=== PATIENT | male | born 1960 | race African-American/Black ===

== ENCOUNTER → 2020-10-19 10:52 | Outpatient (BNVA) | payer OTHER, SELFPAY | PROVIDERS: PCP Internal Medicine; Visit Provider Urology | DX: N52.01 Erectile dysfunction due to arterial insufficiency (principal); N40.1 Benign prostatic hyperplasia with lower urinary tract symptoms; R35.1 Nocturia; N13.8 Other obstructive and reflux uropathy | CPT/HCPCS: 51798; 81002; 84153; Q3014 ==

== ENCOUNTER 2020-10-19 12:00 | Outpatient (REF) | payer MEDICARE, MEDICAID, SELFPAY ==
[2020-10-19 14:49] LABS: Prostate Specific Antigen 3.18 ng/mL (<0.05-4.0)
== END 2020-10-19 12:01 | disposition home or self-care (01) ==
LOC: HO.10HDL 12:00
PROVIDERS: Visit Provider Urology
DX: Z13.89 Encounter for screening for other disorder (principal)
CPT/HCPCS: 84153

== ENCOUNTER 2021-04-12 11:43 | Outpatient (REF) | payer OTHER, SELFPAY ==
[2021-04-12 13:54] LABS: PSA,Total (Free>4and<10) 2.96 ng/mL (0.00-4.00)
== END 2021-04-12 11:44 | disposition home or self-care (01) ==
LOC: HO.LAB 11:43
PROVIDERS: Visit Provider Urology
DX: N40.1 Benign prostatic hyperplasia with lower urinary tract symptoms (principal); N13.8 Other obstructive and reflux uropathy; Z12.5 Encounter for screening for malignant neoplasm of prostate
CPT/HCPCS: 36415; 84153

== ENCOUNTER → 2021-08-07 09:21 | Outpatient (BNVA) | payer OTHER, SELFPAY | PROVIDERS: Visit Provider Urology | DX: N40.1 Benign prostatic hyperplasia with lower urinary tract symptoms (principal); N13.8 Other obstructive and reflux uropathy; N52.01 Erectile dysfunction due to arterial insufficiency; R97.20 Elevated prostate specific antigen [PSA] | CPT/HCPCS: Q3014 ==

== ENCOUNTER 2022-02-03 09:38 | Outpatient (REF) | payer OTHER, SELFPAY ==
[2022-02-03 11:52] LABS: PSA,Total (Free>4and<10) 3.01 ng/mL (0.00-4.00)
== END 2022-02-03 09:39 | disposition home or self-care (01) ==
LOC: HO.LAB 09:38
PROVIDERS: Visit Provider Urology
DX: R97.20 Elevated prostate specific antigen [PSA] (principal); N40.1 Benign prostatic hyperplasia with lower urinary tract symptoms; N13.8 Other obstructive and reflux uropathy; Z12.5 Encounter for screening for malignant neoplasm of prostate
CPT/HCPCS: 36415; 84153

== ENCOUNTER → 2022-02-04 11:40 | Outpatient (BNVA) | payer OTHER, SELFPAY | PROVIDERS: Visit Provider Urology | DX: R97.20 Elevated prostate specific antigen [PSA] (principal); N52.01 Erectile dysfunction due to arterial insufficiency; N40.1 Benign prostatic hyperplasia with lower urinary tract symptoms; N13.8 Other obstructive and reflux uropathy; R39.11 Hesitancy of micturition; Z79.899 Other long term (current) drug therapy | CPT/HCPCS: 51798; 99212 ==

== ENCOUNTER → 2022-04-01 08:42 | Outpatient (BNVA) | payer OTHER, SELFPAY | PROVIDERS: PCP Nurse Practitioner Family; Visit Provider Urology | DX: Z13.89 Encounter for screening for other disorder (principal) | CPT/HCPCS: Q3014 ==

== ENCOUNTER → 2022-06-10 08:05 | Outpatient (BNVA) | payer OTHER, SELFPAY | PROVIDERS: PCP Nurse Practitioner Family; Visit Provider Urology | DX: N40.1 Benign prostatic hyperplasia with lower urinary tract symptoms (principal); N13.8 Other obstructive and reflux uropathy; R97.20 Elevated prostate specific antigen [PSA]; N52.01 Erectile dysfunction due to arterial insufficiency | CPT/HCPCS: Q3014 ==

== ENCOUNTER → 2022-07-09 12:45 | Outpatient (BNVA) | payer OTHER, SELFPAY | PROVIDERS: PCP Nurse Practitioner Family; Visit Provider Urology | DX: R97.20 Elevated prostate specific antigen [PSA] (principal); E11.69 Type 2 diabetes mellitus with other specified complication; N52.1 Erectile dysfunction due to diseases classified elsewhere; N40.1 Benign prostatic hyperplasia with lower urinary tract symptoms; N13.8 Other obstructive and reflux uropathy; R39.12 Poor urinary stream; R35.1 Nocturia | CPT/HCPCS: 51798; 99212 ==

== ENCOUNTER 2022-09-08 11:10 | Outpatient (REF) | payer OTHER, SELFPAY ==
--- NOTE | ~2022-09-08 | US_ITS ---
EXAMINATION: US PELVIS LIMITED (BLADDER) CLINICAL INFORMATION: Poor urinary stream. COMPARISON: None TECHNIQUE: Real-time imaging of the bladder. FINDINGS: BLADDER: There is mild diffuse bladder wall thickening.. No stone or mass. Bilateral ureteral jets are demonstrated. Prevoid bladder volume is 215.7 mL. Postvoid bladder volume is 13.6 mL. The prostate volume is 22.7 mL. US/US bladder IMPRESSION: Mild diffuse bladder wall thickening. Normal size prostate gland.
== END 2022-09-08 11:11 | disposition home or self-care (01) ==
LOC: HO.US 11:10
PROVIDERS: Visit Provider Urology
DX: R39.12 Poor urinary stream (principal); N40.1 Benign prostatic hyperplasia with lower urinary tract symptoms; N13.8 Other obstructive and reflux uropathy
CPT/HCPCS: 76857

== ENCOUNTER → 2022-09-16 12:39 | Outpatient (BNVA) | payer OTHER, SELFPAY | PROVIDERS: PCP Nurse Practitioner Family; Visit Provider Urology | DX: E11.69 Type 2 diabetes mellitus with other specified complication (principal); N52.01 Erectile dysfunction due to arterial insufficiency; N40.1 Benign prostatic hyperplasia with lower urinary tract symptoms; R39.11 Hesitancy of micturition; R39.12 Poor urinary stream; R35.1 Nocturia | CPT/HCPCS: Q3014 ==

== ENCOUNTER 2023-03-17 06:35 | Outpatient (REF) | payer OTHER, SELFPAY ==
[2023-03-17 08:13] LABS: Prostate Specific Antigen 4.72 ng/mL (<0.05-4.0)
== END 2023-03-17 06:36 | disposition home or self-care (01) ==
LOC: HO.LAB 06:35
PROVIDERS: Visit Provider Urology
DX: Z12.5 Encounter for screening for malignant neoplasm of prostate (principal); N13.8 Other obstructive and reflux uropathy; N40.1 Benign prostatic hyperplasia with lower urinary tract symptoms
CPT/HCPCS: 36415; 84153

== ENCOUNTER → 2023-03-25 11:26 | Outpatient (BNVA) | payer OTHER, SELFPAY | PROVIDERS: PCP Nurse Practitioner Family; Visit Provider Urology | DX: N40.1 Benign prostatic hyperplasia with lower urinary tract symptoms (principal); N13.8 Other obstructive and reflux uropathy; N52.01 Erectile dysfunction due to arterial insufficiency; R97.20 Elevated prostate specific antigen [PSA] | CPT/HCPCS: 99212 ==

== ENCOUNTER → 2023-04-24 10:06 | Outpatient (BNVA) | payer OTHER, SELFPAY | PROVIDERS: PCP Nurse Practitioner Family; Visit Provider Urology | DX: N40.1 Benign prostatic hyperplasia with lower urinary tract symptoms (principal); N13.8 Other obstructive and reflux uropathy; R97.20 Elevated prostate specific antigen [PSA] | CPT/HCPCS: 52000; 99212 ==

== ENCOUNTER 2023-08-18 07:59 | Outpatient (REF) | payer OTHER, SELFPAY | END 2023-08-18 08:00 | disposition home or self-care (01) | LOC: HO.LAB 07:59 | PROVIDERS: Visit Provider Urology | DX: R97.20 Elevated prostate specific antigen [PSA] (principal); Z12.5 Encounter for screening for malignant neoplasm of prostate | CPT/HCPCS: 36415; 84153 ==

== ENCOUNTER 2023-08-25 08:52 | Outpatient (AMB) | payer OTHER, SELFPAY ==
--- NOTE | 2023-08-25 08:57 | MHC.OFFVIS ---
Intake Intake Visit Reasons: 4M PSA(set) Intake Note: Patient is present for PSA Results: 08/18/23- PSA: 4.80 Urology Med: Finasteride, Tadalafil (Per Pt not taking) Antibiotic Allergy: None Blood Thinner: None Commercial Loan Closer Required: No Accompanied by: Self / Same As Patient Allergies No Known Allergies Allergy (Verified 08/25/23 08:59) Medication List - Last Reconciled 08/25/23 by Kali Yang MD atorvastatin 80 mg PO DAILY blood sugar diagnostic (FreeStyle Lite Strips) As directed capsaicin 0.025% appl topical diclofenac sodium 50 mg PO BID empagliflozin (Jardiance) 25 mg PO DAILY finasteride 5 mg PO DAILY 90 days gabapentin 300 mg PO TID lancets (FreeStyle Lancets) As directed lisinopril 2.5 mg PO DAILY lorazepam 2 mg PO methocarbamol 500 mg PO BID PRN omeprazole 20 mg PO DAILY sitagliptin phosphate (Januvia) 100 mg PO DAILY sitagliptin phosphate (Januvia) 50 mg PO DAILY tadalafil 10 mg PO DAILY 90 days tadalafil 20 mg PO ONCE PRN 30 days triamterene-hydrochlorothiazid 75-50 mg 1 tab PO DAILY HPI HPI Comments History of Present Illness Details Fernie is a pleasant male. He is a patient of Dr. Muse. He is seen for following urologic conditions - elevated PSA - erectile dysfunction secondary to diabetes Feels stream is a little improved PSA remains elevated Since last visit diagnosed with lung cancer. Undergone biopsy with partial lobectomy. Planning for chemotherapy versus XRT Prior Cystoscopy performed, small prostate, no median lobe Prior discussed transurethral incision of prostate Continue with combination daily tadalafil with on demand and finasteride Repeat PSA in 6 months Lower urinary tract symptoms Initial symptoms Urinary hesitancy, weakness of stream with nocturia and post terminal leakage Prior therapy - Not tolerating tamsulosin - made him sick Current therapy - finasteride with tadalafil Imaging - 09/06 Bladder 220 pre, 20 post, 20 cc prostate Elevated PSA/Abnormal DEL: Urination is reasonable He presents for further evaluation of elevated PSA. Current management is finasteride - had been followed 2015 with a different provider. Biopsy was performed which was negative. Laboratory investigations include 05/04 5.0, 12/05 4.7, 05/05 5.7, 11/04, 04/05 2.9, 02/04 3.0, 04/07 4.7, 09/07 4.8 Imaging investigations include a transrectal ultrasound - 06/03 Bladder US 40cc Individualized Prostate Cancer Risk Calculator 5-10% high risk, Discussed use of 5AR to help differentiate prostate cancer from benign disease. He would like to try this and understands the small risk associated with a delay in diagnosis Overall symptoms are mild. Erectile dysfunction in setting of diabetes Able to obtain but cannot maintain erection Current therapy 10 mg daily tadalafil with tadalafil 20 mg on demand [facility] Medical History Benign neoplasm of colon Combined arterial insufficiency and corporo-venous occlusive erectile dysfunction Depression Diabetes mellitus, type II Elevated PSA Erectile dysfunction Hyperlipidemia Kidney disease OA (osteoarthritis) Obesity Posttraumatic stress disorder Thrombocytosis Surgical History History of surgery History of surgery H/O prostate biopsy H/O arthroscopy of left knee Hx of colonoscopy Family History Father No problems noted. Mother CHF (congestive heart failure) Social History Alcohol intake: never Patient Tobacco Use Status: Never used Tobacco Review of Systems Const Denies chills and Denies fever(s) Card Reports no additional complaints and Denies syncope Resp Denies cough GI Denies abdominal pain and Denies heartburn Reports as per HPI and Denies change in libido Neuro Denies syncope Psych Denies change in libido Endo Denies change in libido Physical Exam Const General: cooperative, healthy appearing, comfortable and no acute distress Orientation/consciousness: patient oriented x3 HEENT Face and sinus: Yes normal facial exam Mouth: moist mucous membranes Neck Neck: Yes normal visual inspection, Yes full ROM and Yes trachea midline Chest Chest palpation & inspection: normal inspection of the chest Resp Effort & Inspection: normal respiratory effort, able to speak in complete sentences and no respiratory distress GI Inspection: Yes normal to inspection Back/Spine/Pelvis Cervical Spine: normal cervical lordosis Thoracic/Lumbar Spine: thoracic and lumbar spine normal to inspection Skin General skin exam: no rashes or lesions noted Neuro General: patient oriented x3, gait normal, tone normal and moves all extremities Extrem General: Yes normal to inspection and Yes capillary refill normal Assessment & Plan Assessment & Plan (1) Erectile dysfunction due to arterial insufficiency: Code(s): N52.01 - Erectile dysfunction due to arterial insufficiency (2) Elevated PSA: Code(s): R97.20 - Elevated prostate specific antigen [PSA] (3) Nocturia more than twice per night: Code(s): R35.1 - Nocturia Plan 6 month follow-up PSA Orders: Orders PSA,Total (Free>4and<10) 6 Months R97.20 - Elevated prostate specific antigen [PSA] Medications: New tadalafil 10 mg PO DAILY 90 tabs 1RF sexual activity 90 days N52.01 - Erectile dysfunction due to arterial insufficiency tadalafil On demand medication take 60 minutes before intended activity 20 mg PO ONCE PRN 30 tabs 0RF sexual activity 30 days E11.69 - Type 2 diabetes mellitus with other specified complication, N52.1 - Erectile dysfunction due to diseases classified elsewhere Patient Instructions: Imaging studies, laboratory and physical exam results were discussed and reviewed in detail. No major barriers to patient understanding were identified. An opportunity to ask questions regarding the treatment plan was provided. All questions were answered. The patient expressed understanding and agreement with the above treatment plan. The patient is aware they should contact our office by phone for worsening of their current condition or the appearance of new urologic symptoms. Compliance is encouraged with any medications and followup testing that is ordered. It is a privilege to participate in the urologic care of your patient. If you have any questions or concerns regarding treatment for the above conditions, or other urologic issues, please do not hesitate to contact me. The office telephone contact is [phone]. This note is constructed using voice recognition software. While every effort has been made to ensure accuracy metal fabricator welder errors may have been included. Yours sincerely, Dr Kali Yang MD, BR[facility] - Urology Providers of Expert, Compassionate Care for the Genitourinary System Coding Level of Care Code Est Pt Level 4 (43027) Diagnoses Erectile dysfunction due to arterial insufficiency N52.01 Elevated PSA R97.20 Nocturia more than twice per night R35.1
== END 2023-08-25 09:51 | disposition home or self-care (01) ==
PROVIDERS: PCP Nurse Practitioner Family; Visit Provider Urology
DX: N52.01 Erectile dysfunction due to arterial insufficiency (principal); R97.20 Elevated prostate specific antigen [PSA]; R35.1 Nocturia
CPT/HCPCS: 99214

== ENCOUNTER → 2023-08-25 08:52 | Outpatient (BNVA) | payer OTHER, SELFPAY | PROVIDERS: PCP Nurse Practitioner Family; Visit Provider Urology | DX: E11.69 Type 2 diabetes mellitus with other specified complication (principal); N52.1 Erectile dysfunction due to diseases classified elsewhere; R35.1 Nocturia; R97.20 Elevated prostate specific antigen [PSA] | CPT/HCPCS: 99212 ==

== ENCOUNTER 2024-02-16 12:53 | Outpatient (REF) | payer OTHER, SELFPAY ==
[2024-02-16 14:26] LABS: PSA,Total (Free>4and<10) 4.04 ng/mL (0.00-4.00)
[2024-02-18 12:04] LABS: Free Prostate Spec Ag 0.9 ng/mL; Percent Free Prostate Spec Ag 13 % (calc) (>25); Prostate Specific Ag Total 6.7 ng/mL (< OR = 4.0)
== END 2024-02-16 12:54 | disposition home or self-care (01) ==
LOC: HO.LAB 12:53
PROVIDERS: PCP Internal Medicine; Visit Provider Urology
DX: R97.20 Elevated prostate specific antigen [PSA] (principal); Z12.5 Encounter for screening for malignant neoplasm of prostate
CPT/HCPCS: 36415; 84153; 84154

== ENCOUNTER 2024-02-24 08:43 | Outpatient (AMB) | payer OTHER, SELFPAY ==
--- NOTE | 2024-02-24 08:46 | MHC.OFFVIS ---
Intake Intake Visit Reasons: 6M PSA(set)confirmed Intake Note: Patient presents today for a follow up on: PSA Meds- Finasteride, Tadalafil Allergies to Antibiotic- No Known Allergies Blood Thinner- None Post Void Residual: 132ml Research Neuropsychologist Required: No Accompanied by: Self / Same As Patient Allergies No Known Allergies Allergy (Verified 02/24/24 08:54) Medication List - Last Reconciled 02/24/24 by Kali Yang MD atorvastatin 80 mg PO DAILY blood sugar diagnostic (FreeStyle Lite Strips) As directed capsaicin 0.025% appl topical diclofenac sodium 50 mg PO BID empagliflozin (Jardiance) 25 mg PO DAILY finasteride 5 mg PO DAILY 90 days gabapentin 300 mg PO TID lancets (FreeStyle Lancets) As directed lisinopril 2.5 mg PO DAILY lorazepam 2 mg PO methocarbamol 500 mg PO BID PRN omeprazole 20 mg PO DAILY sitagliptin phosphate (Januvia) 100 mg PO DAILY sitagliptin phosphate (Januvia) 50 mg PO DAILY tadalafil 10 mg PO DAILY 90 days tadalafil 20 mg PO ONCE PRN 30 days triamterene-hydrochlorothiazid 75-50 mg 1 tab PO DAILY HPI HPI Comments History of Present Illness Details Fernie is a pleasant male. He is a patient of Dr. Muse. He is seen for following urologic conditions - elevated PSA - erectile dysfunction secondary to diabetes - lower urinary tract symptoms PSA continuing to climb Prior negative biopsy Recommend MRI Weakness of stream with urgency and frequency following chemotherapy PSA to have stop finasteride 2022 diagnosed with lung cancer. Undergone biopsy with partial lobectomy and chemotherapy Prior Cystoscopy performed, small prostate, no median lobe Prior discussed transurethral incision of prostate Continue with combination daily tadalafil with on demand Lower urinary tract symptoms Initial symptoms Urinary hesitancy, weakness of stream with nocturia and post terminal leakage Prior therapy - Not tolerating tamsulosin - made him sick Current therapy - finasteride with tadalafil Imaging - 09/06 Bladder 220 pre, 20 post, 20 cc prostate Elevated PSA/Abnormal DEL: Urination is reasonable He presents for further evaluation of elevated PSA. Current management is finasteride - had been followed 2015 with a different provider. Biopsy was performed which was negative. Laboratory investigations include 05/04 5.0, 12/05 4.7, 05/05 5.7, 11/04, 04/05 2.9, 02/04 3.0, 04/07 4.7, 09/07 4.8, 03/09 6.7 13% Imaging investigations include a transrectal ultrasound - 06/03 Bladder US 40cc Individualized Prostate Cancer Risk Calculator 5-10% high risk, Discussed use of 5AR to help differentiate prostate cancer from benign disease. He would like to try this and understands the small risk associated with a delay in diagnosis Erectile dysfunction in setting of diabetes Able to obtain but cannot maintain erection Current therapy 10 mg daily tadalafil with tadalafil 20 mg on demand [facility] Medical History Obesity Posttraumatic stress disorder Hyperlipidemia Erectile dysfunction Benign neoplasm of colon OA (osteoarthritis) Depression Diabetes mellitus, type II Kidney disease Thrombocytosis Combined arterial insufficiency and corporo-venous occlusive erectile dysfunction Elevated PSA Surgical History History of surgery History of surgery H/O prostate biopsy H/O arthroscopy of left knee Hx of colonoscopy Family History Father No problems noted. Mother CHF (congestive heart failure) Social History Alcohol intake: never Patient Tobacco Use Status: Never used Tobacco Review of Systems Const Denies chills and Denies fever(s) Card Reports no additional complaints and Denies syncope Resp Denies cough GI Denies abdominal pain and Denies heartburn Reports as per HPI and Denies change in libido Neuro Denies syncope Psych Denies change in libido Endo Denies change in libido Physical Exam Const General: cooperative, healthy appearing, comfortable and no acute distress Orientation/consciousness: patient oriented x3 HEENT Face and sinus: Yes normal facial exam Mouth: moist mucous membranes Neck Neck: Yes normal visual inspection, Yes full ROM and Yes trachea midline Chest Chest palpation & inspection: normal inspection of the chest Resp Effort & Inspection: normal respiratory effort, able to speak in complete sentences and no respiratory distress GI Inspection: Yes normal to inspection Back/Spine/Pelvis Cervical Spine: normal cervical lordosis Thoracic/Lumbar Spine: thoracic and lumbar spine normal to inspection Skin General skin exam: no rashes or lesions noted Neuro General: patient oriented x3, gait normal, tone normal and moves all extremities Extrem General: Yes normal to inspection and Yes capillary refill normal Office Procedures Post Void Residual Post Residual Void Post Void Residual (PVR): 132 [id number]-[place] Void Residual by ultrasound Assessment & Plan Assessment & Plan (1) Elevated PSA: Code(s): R97.20 - Elevated prostate specific antigen [PSA] (2) Nocturia more than twice per night: Code(s): R35.1 - Nocturia (3) Erectile dysfunction due to arterial insufficiency: Code(s): N52.01 - Erectile dysfunction due to arterial insufficiency Plan Prostate MRI for elevated PSA Trial tamsulosin for lower urinary tract symptoms Continue tadalafil Orders: Orders AMB Post Void Residual by ultrasound Today R33.9 - Retention of urine, unspecified MR pelvis wo/w con Today C61 - Malignant neoplasm of prostate, R97.20 - Elevated prostate specific antigen [PSA] Medications: New tamsulosin 0.4 mg PO BEDTIME 30 days 30 caps 1RF N40.1 - Benign prostatic hyperplasia with lower urinary tract symptoms, R35.1 - Nocturia Patient Instructions: Imaging studies, laboratory and physical exam results were discussed and reviewed in detail. No major barriers to patient understanding were identified. An opportunity to ask questions regarding the treatment plan was provided. All questions were answered. The patient expressed understanding and agreement with the above treatment plan. The patient is aware they should contact our office by phone for worsening of their current condition or the appearance of new urologic symptoms. Compliance is encouraged with any medications and followup testing that is ordered. It is a privilege to participate in the urologic care of your patient. If you have any questions or concerns regarding treatment for the above conditions, or other urologic issues, please do not hesitate to contact me. The office telephone contact is [phone]. This note is constructed using voice recognition software. While every effort has been made to ensure accuracy superintendent container terminal errors may have been included. Yours sincerely, Dr Kali Yang MD, BRU[facility] - Urology Providers of Expert, Compassionate Care for the Genitourinary System Coding Level of Care Code Est Pt Level 4 (09878) Diagnoses Elevated PSA R97.20 Nocturia more than twice per night R35.1 Erectile dysfunction due to arterial insufficiency N52.01 CPT Codes Post Residual Void - PVR CPT Code: 49674-Kbqo Void Residual by ultrasound ([id number])
== END 2024-02-24 09:24 | disposition home or self-care (01) ==
PROVIDERS: PCP Nurse Practitioner Family; Visit Provider Urology
DX: R97.20 Elevated prostate specific antigen [PSA] (principal); R35.1 Nocturia; N52.01 Erectile dysfunction due to arterial insufficiency
CPT/HCPCS: 99214

== ENCOUNTER → 2024-02-24 08:43 | Outpatient (BNVA) | payer OTHER, SELFPAY | PROVIDERS: PCP Nurse Practitioner Family; Visit Provider Urology | DX: R97.20 Elevated prostate specific antigen [PSA] (principal); R35.1 Nocturia; N52.01 Erectile dysfunction due to arterial insufficiency | CPT/HCPCS: 51798; 99212 ==

== ENCOUNTER 2024-04-27 08:46 | Outpatient (AMB) | payer OTHER, SELFPAY ==
--- NOTE | 2024-04-27 08:48 | MHC.OFFVIS ---
Intake Visit Reasons: 2m/MRI(set) Intake Note: Patient is Present for PVR/MRI Urology Med: Tadalafil, Finasteride Antibiotic Allergy:None Blood Thinner: None Last PVR: 132ml Todays PVR: 0ml Patient has not started tamsulosin that was last prescribed due to copay being very expensive Allergies No Known Allergies Allergy (Verified 02/24/24 08:54) HPI Comments Details: Fernie is a pleasant male. He is a patient of Dr. Muse. He is seen for following urologic conditions - elevated PSA - erectile dysfunction secondary to diabetes - lower urinary tract symptoms Follow-up from MRI 40 g prostate No evidence of uptake 95% negative predictive value Continue to follow PSA q.6 months Put back on tadalafil 5 mg daily And has on demand Did notice decline on erectile function following chemotherapy for lung cancer Weakness of stream with urgency and frequency following chemotherapy PSA to have stop finasteride 2022 diagnosed with lung cancer. Undergone biopsy with partial lobectomy and chemotherapy Prior Cystoscopy performed, small prostate, no median lobe Prior discussed transurethral incision of prostate Continue with combination daily tadalafil with on demand Lower urinary tract symptoms Initial symptoms Urinary hesitancy, weakness of stream with nocturia and post terminal leakage Prior therapy - Not tolerating tamsulosin - made him sick Current therapy - finasteride with tadalafil Imaging - 09/06 Bladder 220 pre, 20 post, 20 cc prostate Elevated PSA/Abnormal DEL: Urination is reasonable He presents for further evaluation of elevated PSA. Current management is finasteride - had been followed 2015 with a different provider. Biopsy was performed which was negative. Laboratory investigations include 05/04 5.0, 12/05 4.7, 05/05 5.7, 11/04, 04/05 2.9, 02/04 3.0, 04/07 4.7, 09/07 4.8, 03/09 6.7 13% Imaging investigations include a transrectal ultrasound - 06/03 Bladder US 40cc Individualized Prostate Cancer Risk Calculator 5-10% high risk, Discussed use of 5AR to help differentiate prostate cancer from benign disease. He would like to try this and understands the small risk associated with a delay in diagnosis Erectile dysfunction in setting of diabetes Able to obtain but cannot maintain erection Current therapy 10 mg daily tadalafil with tadalafil 20 mg on demand [facility] Medical History Obesity Posttraumatic stress disorder Hyperlipidemia Erectile dysfunction Benign neoplasm of colon OA (osteoarthritis) Depression Diabetes mellitus, type II Kidney disease Thrombocytosis Combined arterial insufficiency and corporo-venous occlusive erectile dysfunction Elevated PSA Surgical History History of surgery History of surgery H/O prostate biopsy H/O arthroscopy of left knee Hx of colonoscopy Family History Father No problems noted. Mother CHF (congestive heart failure) Social History Alcohol intake: never Patient Tobacco Use Status: Never used Tobacco Review of Systems Const Denies chills and Denies fever(s) Card Reports no additional complaints and Denies syncope Resp Denies cough GI Denies abdominal pain and Denies heartburn Reports as per HPI and Denies change in libido Neuro Denies syncope Psych Denies change in libido Endo Denies change in libido Physical Exam Const General: cooperative, healthy appearing, comfortable and no acute distress Orientation/consciousness: patient oriented x3 HEENT Face and sinus: Yes normal facial exam Mouth: moist mucous membranes Neck Neck: Yes normal visual inspection, Yes full ROM and Yes trachea midline Chest Chest palpation & inspection: normal inspection of the chest Resp Effort & Inspection: normal respiratory effort, able to speak in complete sentences and no respiratory distress GI Inspection: Yes normal to inspection Back/Spine/Pelvis Cervical Spine: normal cervical lordosis Thoracic/Lumbar Spine: thoracic and lumbar spine normal to inspection Skin General skin exam: no rashes or lesions noted Neuro General: patient oriented x3, gait normal, tone normal and moves all extremities Extrem General: Yes normal to inspection and Yes capillary refill normal Office Procedures Post Void Residual Post Residual Void Post Void Residual (PVR): 0 51023-Rahp Void Residual by ultrasound Assessment & Plan Assessment & Plan (1) BPH w urinary obs/LUTS: Code(s): N40.1 - Benign prostatic hyperplasia with lower urinary tract symptoms; N13.8 - Other obstructive and reflux uropathy Category: Medical (2) Erectile dysfunction due to arterial insufficiency: Code(s): N52.01 - Erectile dysfunction due to arterial insufficiency Category: Medical Plan Six-month follow-up Orders: Orders Prostate Specific Antigen 6 Months R97.20 - Elevated prostate specific antigen [PSA] AMB Post Void Residual by ultrasound Today N13.8 - Other obstructive and reflux uropathy, N40.1 - Benign prostatic hyperplasia with lower urinary tract symptoms Medications: Discontinued tamsulosin Discontinued Reason: Patient Completed Course 0.4 mg PO BEDTIME 30 days 30 caps 1RF N40.1 - Benign prostatic hyperplasia with lower urinary tract symptoms, R35.1 - Nocturia Patient Instructions: Imaging studies, laboratory and physical exam results were discussed and reviewed in detail. No major barriers to patient understanding were identified. An opportunity to ask questions regarding the treatment plan was provided. All questions were answered. The patient expressed understanding and agreement with the above treatment plan. The patient is aware they should contact our office by phone for worsening of their current condition or the appearance of new urologic symptoms. Compliance is encouraged with any medications and followup testing that is ordered. It is a privilege to participate in the urologic care of your patient. If you have any questions or concerns regarding treatment for the above conditions, or other urologic issues, please do not hesitate to contact me. The office telephone contact is [phone]. This note is constructed using voice recognition software. While every effort has been made to ensure accuracy chairman and chief executive officer errors may have been included. Yours sincerely, Dr Kali Yang MD, BRU[facility] - Urology Providers of Expert, Compassionate Care for the Genitourinary System Coding Level of Care Code Est Pt Level 4 (41386) Diagnoses BPH w urinary obs/LUTS N40.1; N13.8 Erectile dysfunction due to arterial insufficiency N52.01 CPT Codes Post Residual Void - PVR CPT Code: 20973-Efog Void Residual by ultrasound ([id number])
== END 2024-04-27 09:16 | disposition home or self-care (01) ==
PROVIDERS: PCP Nurse Practitioner Family; Visit Provider Urology
DX: N40.1 Benign prostatic hyperplasia with lower urinary tract symptoms (principal); N13.8 Other obstructive and reflux uropathy; N52.01 Erectile dysfunction due to arterial insufficiency
CPT/HCPCS: 99213

== ENCOUNTER → 2024-04-27 08:46 | Outpatient (BNVA) | payer OTHER, SELFPAY | PROVIDERS: PCP Nurse Practitioner Family; Visit Provider Urology | DX: N40.1 Benign prostatic hyperplasia with lower urinary tract symptoms (principal); N13.8 Other obstructive and reflux uropathy; R97.20 Elevated prostate specific antigen [PSA]; E11.69 Type 2 diabetes mellitus with other specified complication; N52.03 Combined arterial insufficiency and corporo-venous occlusive erectile dysfunction | CPT/HCPCS: 51798; 99212 ==

== ENCOUNTER → 2024-10-21 08:28 | Outpatient (BNVA) | payer OTHER, SELFPAY | PROVIDERS: PCP Nurse Practitioner Family; Visit Provider Urology ==